=== PATIENT | male | born 1995 | race Caucasian/White ===

== ENCOUNTER 2020-07-23 07:07 | Emergency (ER) | payer BC, MEDICAID ==
[2020-07-23] MEDS ORDERED: Sodium Chloride 0.9% 10 ML Syringe FLUSH PRN ×2 (07:34→07:59)
[2020-07-23] MEDS ORDERED: Sodium Chloride 0.9% 1,000 ML IV STA (07:34)
[2020-07-23] MEDS ORDERED: Ondansetron 4 MG/2 ML SDV IVPUSH ONE (07:34)
[2020-07-23] MEDS ORDERED: HYDROmorphone 0.5 MG/0.5 ML Syringe IVPUSH ONE (07:36)
[2020-07-23] MEDS ORDERED: cefTRIAXone 2 GM in Sodium Chloride 0.9% 100 ML IV ONE (07:37)
[2020-07-23] MEDS ORDERED: Iopamidol 612 MG/ML 100 ML Bottle IVPUSH ONE (07:59)
[2020-07-23] MEDS ORDERED: Diatrizoate Meglumine/Diatrizoate Sodium 37% 120 ML Bottle PO ONE (07:59)
[2020-07-23] MEDS ORDERED: Iopamidol 612 MG/ML 50 ML SDV IVPUSH ONE (08:00)
--- NOTE | 2020-07-23 09:01 | EDM.PDOC ---
ED HPI GENERAL MEDICAL PROBLEM - General Chief Complaint: Abdominal Pain Stated Complaint: VOMITING Time Seen by Provider: 07/23/20 07:23 Source of Information: Reports: Patient History Limitations: Reports: No Limitations - History of Present Illness INITIAL COMMENTS - FREE TEXT/NARRATIVE: The patient presents with abdominal pain, nausea and vomiting. He said that started last night. He has not been able to stop. He also said a few days ago he cut his lower lip on a yogurt cup. For a few days now his lower lip has been swollen along with the right side of his face. He has no fever, chills, cough, chest pain, shortness of breath or diarrhea. He does have generalized abdominal pain, nausea and vomiting. He still has his appendix and gallbladder. He also says a few days ago he got bit by a dog on the right hand. There is some swelling there now. Onset: Gradual Duration: Day(s): (yesterday) Location: Reports: Abdomen Quality: Reports: Sharp Severity: Moderate Improves with: Reports: None Worsens with: Reports: None Associated Symptoms: Reports: Nausea/Vomiting. Denies: Chest Pain, Cough, Fever/Chills, Headaches, Shortness of Breath Abdomen Pain Score (Numeric/FACES): 4 - Related Data Allergies Allergy/AdvReac Type Severity Reaction Status Date / Time No Known Allergies Allergy Verified 07/23/20 07:25 Home Meds: Home Meds Amoxicillin/Clavulanate K [Augmentin 875-125 MG] 1 tab PO BID #20 tablet 07/23/20 [Rx] Ondansetron [Zofran ODT] 4 mg PO Q6H PRN #20 tab.dis 07/23/20 [Rx] Past Medical History - Past Surgical History HEENT Surgical History: Reports: Tonsillectomy Social & Family History - Tobacco Use Tobacco Use Status *Q: Former Tobacco User Used Tobacco, but Quit: Yes Month/Year Tobacco Last Used: 03/2020 - Recreational Drug Use Recreational Drug Use: Yes Drug Use in Last 12 Months: Yes Recreational Drug Type: Reports: Marijuana/Hashish ED ROS GENERAL - Review of Systems Review Of Systems: See Below Constitutional: Reports: No Symptoms HEENT: Reports: Other (Lower lip swelling and right sided facial swelling) Respiratory: Reports: No Symptoms Cardiovascular: Reports: No Symptoms Endocrine: Reports: No Symptoms GI/Abdominal: Reports: Abdominal Pain, Nausea, Vomiting. Denies: Diarrhea : Reports: No Symptoms Musculoskeletal: Reports: Other (dog bite to right hand) ED EXAM, GI/ABD - Physical Exam Exam: See Below Exam Limited By: No Limitations General Appearance: Alert, Moderate Distress Ears: Normal External Exam Nose: Normal Inspection Head: Atraumatic, Normocephalic Neck: Normal Inspection Respiratory/Chest: No Respiratory Distress, Lungs Clear, Normal Breath Sounds Cardiovascular: Regular Rate, Rhythm, No Edema, No Murmur GI/Abdominal Exam: Soft, No Organomegaly, No Mass, Tender (Moderate generalized abdominal pain) Back Exam: Normal Inspection Extremities: Other (2 puncture wounds to the dorsum of the right hand with no erythema but there is some edema. Good sensation and capillary refill distally.) Neurological: Alert, Oriented, No Motor/Sensory Deficits Course - Vital Signs Last Recorded V/S: Last Vital Signs Temp 95.2 F L 07/23/20 07:21 Pulse 88 07/23/20 07:21 Resp 16 07/23/20 07:21 BP 145/97 H 07/23/20 07:21 Pulse Ox 97 07/23/20 07:21 - Orders/Labs/Meds Orders: Active Orders 24 hr Category Date Time Status Peripheral IV Care [RC] . DIRECTED Care 07/23/20 07:34 Active CULTURE BLOOD [BC] Stat Lab 07/23/20 07:53 Received CULTURE BLOOD [BC] Stat Lab 07/23/20 08:00 Received UA W/MICROSCOPIC [URIN] Stat Lab 07/23/20 07:34 Ordered Sodium Chloride 0.9% [Saline Flush] Med 07/23/20 07:34 Active 10 ml FLUSH ASDIRECTED PRN Sodium Chloride 0.9% [Saline Flush] Med 07/23/20 07:59 Active 10 ml FLUSH ONETIME PRN Blood Culture x2 Reflex Set [OM.PC] Stat Oth 07/23/20 07:36 Ordered ED Antiemetic Medication Reflex [OM.PC] Stat Oth 07/23/20 07:34 Ordered Peripheral IV Insertion Adult [OM.PC] Stat Oth 07/23/20 07:34 Ordered Medication Orders Sodium Chloride (Sodium Chloride 0.9% 10 Ml Syringe) 10 ml FLUSH ASDIRECTED PRN PRN Reason: Keep Vein Open Last Admin: 07/23/20 07:54 Dose: 10 ml Documented by: MARSHAL Sodium Chloride (Sodium Chloride 0.9% 10 Ml Syringe) 10 ml FLUSH ONETIME PRN PRN Reason: Keep Vein Open Last Admin: 07/23/20 09:14 Dose: 10 ml Documented by: MARQUISE Labs: Laboratory Tests 07/23/20 07/23/20 07/23/20 Range/Units 07:53 07:53 07:53 WBC 9.62 H (4.23-9.07) K/mm3 RBC 4.87 (4.63-6.08) M/mm3 Hgb 15.2 (13.7-17.5) gm/dl Hct 45.4 (40.1-51.0) % MCV 93.2 H (79.0-92.2) fl MCH 31.2 (25.7-32.2) pg MCHC 33.5 (32.2-35.5) g/dl RDW Std Deviation 42.6 (35.1-43.9) fL Plt Count 286 (163-337) K/mm3 MPV 10.0 (9.4-12.3) fl Neut % (Auto) 61.3 (34.0-67.9) % Lymph % (Auto) 27.7 (21.8-53.1) % Park % (Auto) 6.4 (5.3-12.2) % Eos % (Auto) 4.1 (0.8-7.0) Baso % (Auto) 0.2 (0.1-1.2) % Neut # (Auto) 5.90 H (1.78-5.38) K/mm3 Lymph # (Auto) 2.66 (1.32-3.57) K/mm3 Park # (Auto) 0.62 (0.30-0.82) K/mm3 Eos # (Auto) 0.39 (0.04-0.54) K/mm3 Baso # (Auto) 0.02 (0.01-0.08) K/mm3 Sodium 142 (136-145) mEq/L Potassium 3.5 (3.5-5.1) mEq/L Chloride 105 (98-107) mEq/L Carbon Dioxide 23 (21-32) mEq/L Anion Gap 17.5 H (5-15) BUN 11 (7-18) mg/dL Creatinine 1.1 (0.7-1.3) mg/dL Est Cr Clr Drug Dosing 107.84 mL/min Estimated GFR (MDRD) > 60 (>60) mL/min BUN/Creatinine Ratio 10.0 L (14-18) Glucose 120 H (74-106) mg/dL Lactic Acid 2.7 H* (0.4-2.0) mmol/L Calcium 8.8 (8.5-10.1) mg/dL Magnesium 2.0 (1.8-2.4) mg/dl Total Bilirubin 0.4 (0.2-1.0) mg/dL AST 55 H (15-37) U/L ALT 140 H (16-63) U/L Alkaline Phosphatase 93 (46-116) U/L Total Protein 7.6 (6.4-8.2) g/dl Albumin 3.9 (3.4-5.0) g/dl Globulin 3.7 gm/dL Albumin/Globulin Ratio 1.1 (1-2) Lipase 120 (73-393) U/L Meds: Medications Generic Name Dose Route Start Last Admin Trade Name Marshall PRN Reason Stop Dose Admin Sodium Chloride 10 ml 07/23/20 07:34 07/23/20 07:54 Sodium Chloride 0.9% 10 Ml Syringe FLUSH 10 ml ASDIRECTED PRN Administration Keep Vein Open Sodium Chloride 10 ml 07/23/20 07:59 07/23/20 09:14 Sodium Chloride 0.9% 10 Ml Syringe FLUSH 10 ml ONETIME PRN Administration Keep Vein Open Discontinued Medications Generic Name Dose Route Start Last Admin Trade Name Marshall PRN Reason Stop Dose Admin Diatrizoate Meglum/Diatrizoate Sod 40 ml 07/23/20 07:59 07/23/20 09:14 Diatrizoate Meglumine/Diatrizoate Sodium 37% 120 Ml Bottle PO 07/23/20 08:00 30 ml ONETIME ONE Administration Hydromorphone HCl 0.5 mg 07/23/20 07:36 07/23/20 07:57 Hydromorphone 0.5 Mg/0.5 Ml Syringe IVPUSH 07/23/20 07:37 0.5 mg ONETIME ONE Administration Ceftriaxone Sodium 2 gm/ 100 mls @ 200 mls/hr 07/23/20 07:37 07/23/20 08:00 Sodium Chloride IV 07/23/20 08:06 200 mls/hr ONETIME ONE Administration Sodium Chloride 1,000 mls @ 1,000 mls/hr 07/23/20 07:34 07/23/20 08:00 Normal Saline IV 07/23/20 08:33 1,000 mls/hr .BOLUS STA Administration Iopamidol 100 ml 07/23/20 07:59 07/23/20 09:13 Iopamidol 612 Mg/Ml 100 Ml Bottle IVPUSH 07/23/20 08:00 100 ml ONETIME ONE Administration Iopamidol 50 ml 07/23/20 08:00 07/23/20 09:13 Iopamidol 612 Mg/Ml 50 Ml Sdv IVPUSH 07/23/20 08:01 50 ml ONETIME ONE Administration Ondansetron HCl 4 mg 07/23/20 07:34 07/23/20 07:55 Ondansetron 4 Mg/2 Ml Sdv IVPUSH 07/23/20 07:35 4 mg ONETIME ONE Administration - Re-Assessments/Exams Free Text/Narrative Re-Assessment/Exam: 07/23/20 09:01 I ordered an IV NS 1L bolus, zofran 4mg IV, dilaudid 0.5mg IV, labs, UA, rocephin 2 grams IV, CT of face, and CT of his abdomen and pelvis. 07/23/20 10:17 His WBC was elevated at 9.62. His anion gap was elevated at 17.5. His AST is elevated at 55 along with his ALT of 140. His lipase is normal at 120. The CT of his abdomen and pelvis shows fatty infiltration throughout the liver with mild focal fatty sparing next to the gallbladder. No acute abnormality is identified on CT study of the abdomen and pelvis. The CT of his maxillofacial bones shows diffuse increased density within the subcutaneous fat and platysma muscle on the right side. This is most likely due to soft tissue swelling and mild myositis. Please correlate if patient has infectious symptoms. Minimal findings within the paranasal sinuses which are felt to be chronic. No other acute abnormality is appreciated. No focal abscess is appreciated. I will get him on some augmentin. This will cover the dog bite as well as the oral, lip and facial infection. Departure - Departure Time of Disposition: 10:25 Disposition: Home, Self-Care 01 Condition: Good Clinical Impression: Oral infection, Facial infection Dog bite, hand Qualifiers: Encounter type: initial encounter Laterality: right Qualified Code(s): S61.451A - Open bite of right hand, initial encounter; W54.0XXA - Bitten by dog, initial encounter - Discharge Information *PRESCRIPTION DRUG MONITORING PROGRAM REVIEWED*: Not Applicable *COPY OF PRESCRIPTION DRUG MONITORING REPORT IN PATIENT MIGUEL: Not Applicable Prescriptions: Amoxicillin/Clavulanate K [Augmentin 875-125 MG] 1 tab PO BID #20 tablet Ondansetron [Zofran ODT] 4 mg PO Q6H PRN #20 tab.dis PRN Reason: Nausea\vomiting Referrals: PCP,None [Primary Care Provider] - Nirali Pereira MD [Physician] - 1 Week Forms: ED Department Discharge, ED Return to Work/School Form Additional Instructions: Drink plenty of fluids. Take the zofran every 6 hours as needed for nausea and vomiting. Take the augmentin 2 times per day for 10 days. Put a warm compress on your face 3 times per day for 5 days. This may not look better for a couple days. After that it should start feeling better. Please return if you are worse. Try to sleep with your head up slightly at night. That will help with the swelling. Sepsis Event Note (ED) - Evaluation Sepsis Screening Result: No Definite Risk - Focused Exam Vital Signs: Vital Signs Temp Pulse Resp BP Pulse Ox 07/23/20 07:21 95.2 F L 88 16 145/97 H 97 - My Orders Last 24 Hours: My Active Orders 07/23/20 07:34 Peripheral IV Care [RC] . DIRECTED UA W/MICROSCOPIC [URIN] Stat Sodium Chloride 0.9% [Saline Flush] 10 ml FLUSH ASDIRECTED PRN ED Antiemetic Medication Reflex [OM.PC] Stat Peripheral IV Insertion Adult [OM.PC] Stat 07/23/20 07:36 Blood Culture x2 Reflex Set [OM.PC] Stat 07/23/20 07:53 CULTURE BLOOD [BC] Stat 07/23/20 07:59 Sodium Chloride 0.9% [Saline Flush] 10 ml FLUSH ONETIME PRN 07/23/20 08:00 CULTURE BLOOD [BC] Stat - Assessment/Plan Last 24 Hours: My Active Orders 07/23/20 07:34 Peripheral IV Care [RC] . DIRECTED UA W/MICROSCOPIC [URIN] Stat Sodium Chloride 0.9% [Saline Flush] 10 ml FLUSH ASDIRECTED PRN ED Antiemetic Medication Reflex [OM.PC] Stat Peripheral IV Insertion Adult [OM.PC] Stat 07/23/20 07:36 Blood Culture x2 Reflex Set [OM.PC] Stat 07/23/20 07:53 CULTURE BLOOD [BC] Stat 07/23/20 07:59 Sodium Chloride 0.9% [Saline Flush] 10 ml FLUSH ONETIME PRN 07/23/20 08:00 CULTURE BLOOD [BC] Stat
--- NOTE | 2020-07-23 09:33 | CT ---
CT abdomen and pelvis Technique: Multiple axial sections were obtained from above the dome of the diaphragm inferiorly through the pubic symphysis. Intravenous and oral contrast was utilized. Delayed images were also obtained through the bladder. Comparison: No prior abdominal imaging is available. Findings: Visualized lung bases show nothing acute. Liver shows diffuse fatty infiltration. Focal fatty sparing is noted next to the gallbladder. Spleen size is normal. Adrenal glands show no nodule. No abnormality is appreciated within the pancreas. Gallbladder contains no calcified gallstones. Kidneys show symmetric contrast enhancement without hydronephrosis or mass. Abdominal aorta shows no aneurysm. No retroperitoneal adenopathy or mesenteric abnormalities are seen. No pelvic mass or adenopathy is appreciated. Delayed images show contrast within the distal ureters and bladder. No inflammatory change or free fluid is seen. Appendix is seen and is normal in size. Small fat-containing umbilical hernia is noted. Bone window settings were reviewed. No acute osseous abnormality is appreciated. Impression: 1. Fatty infiltration throughout the liver with mild focal fatty sparing next to the gallbladder. 2. No acute abnormality is identified on CT study of the abdomen and pelvis. Diagnostic code #2
--- NOTE | 2020-07-23 09:36 | CT ---
CT facial structures Technique: Multiple axial sections were obtained from above the external auditory canals inferiorly through the face and neck. Reconstructed coronal and sagittal images were obtained. Intravenous contrast was utilized. Comparison: No prior CT facial structure is available. Findings: Diffuse soft tissue swelling is seen within the anterior and right lateral side of the face. This is felt compatible with diffuse soft tissue swelling. There is mild thickening of the right platysma muscle compatible with a mild myositis. Parotid salivary glands and submandibular salivary glands appear within normal limits. No paravertebral soft tissue abnormality is appreciated. Small lymph nodes are seen which are believed to be within normal limits at this time. Minimal mucosal thickening is seen within the left frontal sinus with no acute paranasal sinus findings being seen. Mastoid sinuses are felt to be clear. No acute osseous abnormality is appreciated. Impression: 1. Diffuse increased density within the subcutaneous fat and platysma muscle on the right side. This is most likely due to soft tissue swelling and mild myositis. Please correlate if patient has infectious symptoms. 2. Minimal findings within the paranasal sinuses which are felt to be chronic. 3. No other acute abnormality is appreciated. No focal abscess is appreciated. Diagnostic code #3
== END 2020-07-23 11:00 | disposition home or self-care (01) ==
LOC: JD.ED 07:07
DX: S61.451A Open bite of right hand, initial encounter (principal); L08.9 Local infection of the skin and subcutaneous tissue, unspecified; R10.84 Generalized abdominal pain; R11.2 Nausea with vomiting, unspecified; Z87.891 Personal history of nicotine dependence; W54.0XXA Bitten by dog, initial encounter
CPT/HCPCS: 36415; 70487; 74177; 80053; 81001; 83605; 83690; 83735; 85025; 87040; 96365; 96375; 99284; J0696; J1170; J2405; J7030; Q9963; Q9967

== ENCOUNTER 2021-10-16 06:41 | Emergency (ER) | payer SELFPAY ==
[2021-10-16] MEDS ORDERED: Famotidine 20 MG Tab PO ONE (07:18)
[2021-10-16] MEDS ORDERED: diphenhydrAMINE 50 MG Cap PO ONE (07:18)
[2021-10-16] MEDS ORDERED: predniSONE 20 MG Tab PO ONE (07:19)
[2021-10-16] MEDS ORDERED: Sulfamethoxazole/Trimethoprim 800-160 MG Tab PO ONE (08:46)
== END 2021-10-16 10:26 | disposition home or self-care (01) ==
LOC: JD.ED 06:41
DX: L23.7 Allergic contact dermatitis due to plants, except food (principal)
CPT/HCPCS: 99283; A9270; J7512; Q0163